=== PATIENT | female | born 1990 | race Asian ===

== ENCOUNTER 2019-01-15 12:15 | Observation (INO) | payer MEDICAID ==
[~2019-01-15] VITALS: Ht 154.9 cm; Wt 70.8 kg
== END 2019-01-15 14:54 | disposition home or self-care (01) ==
LOC: SPU 12:15
PROVIDERS: ADMIT Obstetrics & Gynecology; ATTEND Obstetrics & Gynecology
DX: O26.893 Other specified pregnancy related conditions, third trimester (principal); R50.9 Fever, unspecified; Z3A.37 37 weeks gestation of pregnancy
CPT/HCPCS: G0378

== ENCOUNTER 2019-01-28 12:25 | Observation (INO) | payer MEDICAID ==
[~2019-01-28] VITALS: Ht 152.4 cm; Wt 79.4 kg
== END 2019-01-28 13:40 | disposition home or self-care (01) ==
LOC: SPU 12:25
PROVIDERS: ADMIT Obstetrics & Gynecology; ATTEND Obstetrics & Gynecology
DX: O62.9 Abnormality of forces of labor, unspecified (principal); Z3A.39 39 weeks gestation of pregnancy
CPT/HCPCS: 76819; G0378

== ENCOUNTER 2019-01-30 16:19 | Observation (INO) | payer MEDICAID | END 2019-01-30 17:10 | disposition home or self-care (01) | LOC: SPU 16:20 | PROVIDERS: ADMIT Obstetrics & Gynecology; ATTEND Obstetrics & Gynecology | DX: O62.9 Abnormality of forces of labor, unspecified (principal); Z3A.39 39 weeks gestation of pregnancy | CPT/HCPCS: 81002; G0378 ==

== ENCOUNTER 2019-01-31 14:35 | Inpatient (IN) | payer MEDICAID ==
[~2019-01-31] VITALS: Ht 154.9 cm; Wt 73.0 kg
[2019-01-31] MEDS ORDERED: LR 1,000 ML IV ONE (15:04)
[2019-01-31] MEDS ORDERED: OXYTOCIN/0.9 % SODIUM CHLORIDE 1,000 ML IV SCH (15:04)
[2019-01-31] MEDS ORDERED: NALBUPHINE HCL 10 MG/ML AMP IVP PRN (15:15)
[2019-01-31] MEDS ORDERED: TERBUTALINE SULFATE 1 MG/ML VIAL SUBCUT ONE (15:15)
[2019-01-31 15:38] VITALS: BP_SYST 118
[2019-01-31 15:44] LABS: BASOPHILS % (AUTO) 0.2 % (0.0-2.0); EOSINOPHILS % (AUTO) 0.1 % (0.0-4.0); HEMATOCRIT 35.5 % (36-48); HEMOGLOBIN 12.1 g/dL (12.0-16.0); LYMPHOCYTES # (AUTO) 1.4 K/uL (1.0-5.5); LYMPHOCYTES % (AUTO) 9.9 % (20.5-51.5); MEAN CORPUSCULAR HEMOGLOBIN 33 pg (27-31); MEAN CORPUSCULAR HGB CONC 34 % (32-36); MEAN CORPUSCULAR VOLUME 95 fL (79.0-98.0); MONOCYTES % (AUTO) 6.8 % (1.7-9.3); NEUTROPHILS # (AUTO) 12.1 K/uL (1.8-7.7); PLATELET COUNT (AUTO) 189 K/uL (130-430); RED BLOOD CELL COUNT(AUTO) 3.72 MIL/uL (4.2-6.2); RED CELL DISTRIBUTION WIDTH 13.4 % (9.0-15.0); WHITE BLOOD COUNT (AUTO) 14.6 K/uL (4.8-10.8)
[2019-01-31] MEDS: LR 1,000 ML IV SCH ×2 (19:30→20:20)
[2019-01-31] MEDS ORDERED: fentaNYL CITRATE/PF 100 MCG/2 ML AMP ONE (19:36)
[2019-01-31] MEDS ORDERED: ROPIVACAINE HCL/PF 0.2% 200 ML ONE (19:36)
[2019-01-31] MEDS ORDERED: LR 500 ML IV ONE (20:28)
[2019-01-31] MEDS ORDERED: FENT2mCg/mL-ROPIVA0.2%/NS EPID 200 ML EP SCH (20:30)
[2019-02-01] MEDS: LR 1,000 ML IV SCH ×2 (03:55→20:00)
[2019-02-01] MEDS ORDERED: ROPIVACAINE HCL/PF 0.2% 100 ML ONE (07:22)
[2019-02-01] MEDS ORDERED: fentaNYL CITRATE/PF 100 MCG/2 ML AMP ONE (07:46)
[2019-02-01] MEDS ORDERED: AMPICILLIN SODIUM 2 GM in NS 100 ML IV ONE (08:30)
[2019-02-01] MEDS ORDERED: PIPERACILLIN/TAZO 3.375/DEX-IS 50 ML IV ONE (08:30)
[2019-02-01] MEDS ORDERED: BUPIVACAINE /PF 0.25% 30 ML VIAL INJ ONE (08:49)
[2019-02-01] MEDS ORDERED: CEFAZOLIN 2 GM IVPB PREMIX 50 ML IV ONE ×2 (09:05→09:07)
[2019-02-01] MEDS ORDERED: METHYLERGONOVINE MALEATE 0.2 MG/ML AMP ONE (09:29)
[2019-02-01] MEDS ORDERED: fentaNYL CITRATE/PF 100 MCG/2 ML AMP IVP PRN ×2 (09:30)
[2019-02-01] MEDS ORDERED: DIPHENHYDRAMINE INJ 50 MG/ML VIAL IVP PRN (09:30)
[2019-02-01] MEDS ORDERED: NALBUPHINE HCL 10 MG/ML AMP IVP PRN (09:30)
[2019-02-01] MEDS ORDERED: KETOROLAC TROMETHAMINE 60 MG/2 ML VIAL IM PRN (09:30)
[2019-02-01] MEDS ORDERED: MORPHINE SULFATE 10MG/10ML PF AMP EP SCH (09:30)
[2019-02-01] MEDS ORDERED: ONDANSETRON HCL 4 MG/2 ML VIAL IVP PRN (09:30)
[2019-02-01] MEDS ORDERED: NALOXONE HCL 0.4 MG/ML AMP (NARCAN) IVP PRN ×2 (09:30)
[2019-02-01] MEDS ORDERED: LR 1,000 ML IV SCH (09:48)
[2019-02-01] MEDS ORDERED: OXYTOCIN/0.9 % SODIUM CHLORIDE 1,000 ML IV ONE (09:48)
[2019-02-01] MEDS ORDERED: PROPOFOL 200MG/ 20ML VIAL (DIPRIVAN) IV ONE (09:55)
[2019-02-01] MEDS ORDERED: NS IRRIG SOLN 1000 ML IR ONE (09:55)
[2019-02-01] MEDS ORDERED: BUPIVACAINE /DEX PF 0.75% SPINAL 2 ML AMP INJ ONE (09:55)
[2019-02-01] MEDS ORDERED: LR 1,000 ML IV.SOLN IV ONE (09:55)
[2019-02-01] MEDS ORDERED: MORPHINE SULFATE 10MG/10ML PF AMP ONE (09:55)
[2019-02-01] MEDS ORDERED: RHO(D) IMMUNE GLOBULIN/MALTOSE 1500 UNITS/1.3 ML (WINHRO) IM PRN (10:00)
[2019-02-01] MEDS ORDERED: HYDROcodone/ACETAMIN 5-325 MG TAB (NORCO/ VICODIN) PO PRN (10:00)
[2019-02-01] MEDS ORDERED: MEASLES,MUMPS&RUBELLA VACC/PF 12500 UNIT/0.5 ML VIAL SUBQ PRN (10:00)
[2019-02-01] MEDS ORDERED: ANUSOL 1 EA SUPP.RECT (PREPARATION H) RC PRN (10:00)
[2019-02-01] MEDS ORDERED: DIPH-TET-PERTUS Vaccine 0.5 ML VIAL (ADACEL) I.M. PRN (10:00)
[2019-02-01] MEDS ORDERED: OXYCODONE/ACETAMINOPHEN 5-325 TABLET PO PRN (10:00)
[2019-02-01] MEDS ORDERED: LANOLIN 7 GM OINT. TP PRN (10:00)
[2019-02-01] MEDS ORDERED: BISACODYL 10 MG/SUPPOSITORY RC PRN (10:00)
[2019-02-01] MEDS ORDERED: SENNOSIDES/DOCUSATE SODIUM 1 TAB TABLET(SENOKOT-S) PO PRN (10:00)
[2019-02-01 10:08] VITALS: BP_SYST 109
[2019-02-01 10:40] LABS: BASOPHILS # (AUTO) 0.1 K/uL (0.0-0.2); BASOPHILS % (AUTO) 0.9 % (0.0-2.0); EOSINOPHILS % (AUTO) 0.1 % (0.0-4.0); HEMOGLOBIN 10.6 g/dL (12.0-16.0); LYMPHOCYTES # (AUTO) 0.4 K/uL (1.0-5.5); LYMPHOCYTES % (AUTO) 2.7 % (20.5-51.5); MEAN CORPUSCULAR HEMOGLOBIN 33 pg (27-31); MEAN CORPUSCULAR HGB CONC 34 % (32-36); MEAN CORPUSCULAR VOLUME 96 fL (79.0-98.0); MONOCYTES # (AUTO) 1.3 K/uL (0.0-1.0); MONOCYTES % (AUTO) 7.9 % (1.7-9.3); NEUTROPHILS # (AUTO) 14.4 K/uL (1.8-7.7); NEUTROPHILS % (AUTO) 88.4 % (40.0-70.0); PLATELET COUNT (AUTO) 128 K/uL (130-430); RED BLOOD CELL COUNT(AUTO) 3.23 MIL/uL (4.2-6.2); RED CELL DISTRIBUTION WIDTH 13.4 % (9.0-15.0); WHITE BLOOD COUNT (AUTO) 16.3 K/uL (4.8-10.8)
[2019-02-01 10:49] LABS: CALCIUM 8.1 mg/dL (8.4-11.0); CREATININE 0.8 mg/dL (0.55-1.30); POTASSIUM 3.5 mmol/L (3.5-5.1)
[2019-02-01 10:54] LABS: TOTAL BILIRUBIN 1.1 mg/dL (0.0-1.0)
[2019-02-01] MEDS: PIPERACILLIN/TAZO 3.375/DEX-IS 50 ML IV SCH ×2 (14:36→20:30)
[2019-02-01] MEDS ORDERED: TEMAZEPAM 15 MG CAPSULE PO PRN (21:00)
[2019-02-02] MEDS ORDERED: KETOROLAC TROMETHAMINE 60 MG/2 ML VIAL IM ONE (00:30)
[2019-02-02] MEDS: PIPERACILLIN/TAZO 3.375/DEX-IS 50 ML IV SCH ×3 (02:30→15:49)
[2019-02-02] MEDS: LR 1,000 ML IV SCH (05:00)
[2019-02-02 08:35] LABS: BASOPHILS # (AUTO) 0.1 K/uL (0.0-0.2); BASOPHILS % (AUTO) 0.5 % (0.0-2.0); EOSINOPHILS % (AUTO) 0.1 % (0.0-4.0); HEMATOCRIT 26.6 % (36-48); LYMPHOCYTES # (AUTO) 1.2 K/uL (1.0-5.5); LYMPHOCYTES % (AUTO) 7.5 % (20.5-51.5); MEAN CORPUSCULAR HEMOGLOBIN 33 pg (27-31); MEAN CORPUSCULAR HGB CONC 34 % (32-36); MEAN CORPUSCULAR VOLUME 96 fL (79.0-98.0); MONOCYTES # (AUTO) 0.8 K/uL (0.0-1.0); MONOCYTES % (AUTO) 5.5 % (1.7-9.3); NEUTROPHILS # (AUTO) 13.3 K/uL (1.8-7.7); NEUTROPHILS % (AUTO) 86.4 % (40.0-70.0); PLATELET COUNT (AUTO) 125 K/uL (130-430); RED BLOOD CELL COUNT(AUTO) 2.76 MIL/uL (4.2-6.2); RED CELL DISTRIBUTION WIDTH 13.7 % (9.0-15.0); WHITE BLOOD COUNT (AUTO) 15.5 K/uL (4.8-10.8)
[2019-02-02] MEDS: OXYCODONE/ACETAMINOPHEN 5-325 TABLET PO PRN ×2 (10:49→17:40)
[2019-02-02] MEDS: IBUPROFEN 600 MG TABLET PO SCH ×2 (15:50→21:30)
[2019-02-02] MEDS: CEPHALEXIN 500 MG CAPSULE PO SCH (22:00)
[2019-02-03] MEDS ORDERED: CEPHALEXIN 500 MG CAPSULE PO SCH
[2019-02-03] MEDS: CEPHALEXIN 500 MG CAPSULE PO SCH ×4 (04:00→22:00)
[2019-02-03] MEDS: IBUPROFEN 600 MG TABLET PO SCH ×3 (06:00→17:45)
[2019-02-03] MEDS: DOCUSATE SODIUM 100 MG CAPSULE PO PRN ×2 (09:13→21:22)
[2019-02-03] MEDS: SIMETHICONE 80 MG TAB.CHEW PO PRN ×2 (09:13→21:23)
[2019-02-03] MEDS: OXYCODONE/ACETAMINOPHEN 5-325 TABLET PO PRN ×2 (09:14→14:24)
[2019-02-04] MEDS: IBUPROFEN 600 MG TABLET PO SCH ×2 (00:12→06:06)
[2019-02-04] MEDS: CEPHALEXIN 500 MG CAPSULE PO SCH ×2 (04:00→06:05)
[2019-02-04] MEDS: DOCUSATE SODIUM 100 MG CAPSULE PO PRN (07:51)
[2019-02-04] MEDS: OXYCODONE/ACETAMINOPHEN 5-325 TABLET PO PRN (07:52)
== END 2019-02-04 10:55 | disposition home or self-care (01) | DRG 540 ==
LOC: OBSVTOIN 14:35 → SPU 14:35
PROVIDERS: ADMIT Obstetrics & Gynecology; ATTEND Obstetrics & Gynecology
PROC: 10D00Z1 Extraction of Products of Conception, Low, Open Approach (ICD-10-PCS; principal; 2019-02-01 08:30)
DX: O41.1230 Chorioamnionitis, third trimester, not applicable or unspecified (principal); O75.2 Pyrexia during labor, not elsewhere classified; O75.81 Maternal exhaustion complicating labor and delivery; Z37.0 Single live birth; O76 Abnormality in fetal heart rate and rhythm complicating labor and delivery; Z3A.40 40 weeks gestation of pregnancy
CPT/HCPCS: 36415; 80053; 85025; 86592; 86886; 86900; 86901; 87070-TC; 87075-TC; 88307; A4618; J0290; J0690; J1885; J2210; J2274; J2300; J2543; J2590; J2704; J2795; J3010; J3490; J7120